=== PATIENT | female | born 1985 | race African-American/Black ===

== ENCOUNTER 2019-04-11 22:39 | Emergency (ER) | payer MEDICAID ==
[~2019-04-11] VITALS: Ht 167.6 cm; Wt 83.2 kg
[~2019-04-11 22:39] MED LIST: HYDROCODONE-APA1 TAB PO; IBUPROFEN800 MG PO; PERCOCET 10/3251 TA1 PO
[2019-04-11 22:40] VITALS: Ht 167.6 cm; Wt 83.2 kg
[2019-04-11] MEDS ORDERED: ROBAXIN500 MG PO (23:23)
[2019-04-12 00:04] VITALS: BP 123/80
== END 2019-04-12 00:05 | disposition home or self-care (01) ==
LOC: D.ER 22:39
DX: S13.4XXA Sprain of ligaments of cervical spine, initial encounter (principal); V89.2XXA Person injured in unspecified motor-vehicle accident, traffic, initial encounter

== ENCOUNTER 2020-02-16 15:33 | Emergency (ER) | payer SELFPAY ==
[~2020-02-16] VITALS: Ht 167.6 cm; Wt 77.7 kg
[~2020-02-16 15:33] MED LIST changes: +ROBAXIN500 MG PO
[2020-02-16 16:00] VITALS: BP 121/76; Ht 167.6 cm; Wt 77.7 kg
[2020-02-16 16:36] LABS: BILIRUBIN NEGATIVE (NEGATIVE); GLUCOSE NEGATIVE (NEGATIVE); KETONE NEGATIVE (NEGATIVE); NITRITE NEGATIVE (NEGATIVE); UROBILINOGEN NORMAL (NORMAL)
[2020-02-16 16:37] LABS: BACTERIA FEW /hpf (NEGATIVE); EPITHELIAL CELLS 0-5 /hpf (0-5); RED CELLS - URINE OCC /hpf (0-5); WHITE CELLS - URINE 0-5 /hpf (NEGATIVE)
[2020-02-16 17:09] LABS: BASOPHILS 0.3 % (0-2); EOSINOPHILS 2.3 % (0-7); HEMATOCRIT 39.7 % (36.0-48.0); HEMOGLOBIN 13.7 g/dL (12-16); IMMATURE GRANULOCYTES 0.1 % (0-5); LYMPHOCYTES 40.2 % (15-50); MCH 34.2 pg (26.0-34.0); MCHC 34.5 g/dL (31.0-37.0); MEAN PLATELET VOLUME 9.7 fL (7.4-10.4); MONOCYTES 7.1 % (2-11); PLATELET COUNT 216 10x3/uL (130-400); RBC 4.01 10x6/uL (4.00-5.40); RDW 11.9 % (11.5-14.5); WBC 7.1 10x3/uL (4.8-10.8)
[2020-02-16 17:23] LABS: CALC OSMOLALITY 276 mosm/kg (275-300); CALCIUM 8.5 mg/dL (8.5-10.1); CARBON DIOXIDE 25.1 mmol/L (21.0-32.0); CHLORIDE - SERUM 105 mmol/L (98-107); CREATININE - SERUM 0.8 mg/dL (0.6-1.3); GLUCOSE 85 mg/dL (74-106); POTASSIUM - SERUM 3.7 mmol/L (3.5-5.1); SODIUM 139 mmol/L (136-145); UREA NITROGEN 12 mg/dL (7-18); eGFR NON AFRICAN AMERICAN 87 mL/min (90-120)
[2020-02-16 17:28] LABS: ALBUMIN 3.7 g/dL (3.4-5.0); ALKALINE PHOSPHATASE 70 U/L (30-120); ALT (SGPT) 23 U/L (10-68); BILIRUBIN - TOTAL 0.19 mg/dL (0.2-1.3); LIPASE 99 U/L (73-393); PROTEIN - SERUM 7.6 g/dL (6.4-8.2)
[2020-02-16 18:00] LABS: HCG SERUM NEGATIVE (NEGATIVE)
[2020-02-16] MEDS ORDERED: ZOFRAN4 MG PO (18:04)
[2020-02-16] MEDS ORDERED: MACROBID100 MG PO (18:04)
== END 2020-02-16 18:30 | disposition home or self-care (01) ==
LOC: D.ER 15:33
PROVIDERS: Family Medicine
DX: N39.0 Urinary tract infection, site not specified (principal); R10.13 Epigastric pain